=== PATIENT | male | born 1960 | race Caucasian/White ===

== ENCOUNTER 2022-04-14 23:09 | Emergency (ER) | payer MEDICARE, OTHER ==
[2022-04-15] MEDS ORDERED: LIDOCAINE 1% INJ 10MG/ML (5 ML VIAL-PF) SQ ONE (00:28)
--- NOTE | 2022-04-15 00:29 | ED ---
Upper Extremity HPI - General Stated Complaint: Fish hook in LT hand Time Seen by Provider: 04/15/22 00:25 Source: patient - History of Present Illness Initial Comments: Patient presents with a treble hook embedded in the dorsum of his left hand which is been present for about 1-2 hours. This occurred while the patient was fishing. Patient states he is up-to-date on tetanus. No other injuries. No distal paresthesias. No numbness or proximal injuries. No history of immunosuppression or diabetes. No headache, no fever or chills, no changes in vision or hearing, no sore throat or difficulty with speech, no neck pain, no chest pain or shortness of breath, no abdominal pain, no nausea or vomiting, no changes in urination or bowel movements, no numbness or tingling, no extremity pain, no skin rashes or lesions. MD Complaint: Injury to:: left, hand - Related Data Home Medications Medication Instructions Recorded Confirmed Hydrocodone/Acetaminophen [[place] 1 each PO BID PRN 03/08/15 03/08/15 5-325] oxyCODONE ER [OxyCONTIN 20MG E.R] 20 mg PO TID PRN 03/08/15 03/08/15 Previous Rx's Medication Instructions Recorded Cephalexin [Keflex] 500 mg PO Q6HR #28 cap 03/09/15 Allergies Allergy/AdvReac Type Severity Reaction Status Date / Time No Known Allergies Allergy Verified 04/15/22 00:27 Review of Systems ROS Statement: Those systems with pertinent positive or pertinent negative responses have been documented in the HPI. ROS Other: All systems not noted in ROS Statement are negative. Past Medical History Additional Past Medical History / Comment(s): Back pain; Hip pain History of Any Multi-Drug Resistant Organisms: None Reported Past Surgical History: Orthopedic Surgery Past Psychological History: No Psychological Hx Reported Past Alcohol Use History: None Reported Past Drug Use History: None Reported General Exam General appearance: alert, in no apparent distress Head exam: Present: atraumatic, normocephalic, normal inspection Eye exam: Present: normal appearance, EOMI ENT exam: Present: normal exam Neck exam: Present: normal inspection Respiratory exam: Absent: respiratory distress Cardiovascular Exam: Present: regular rate, normal rhythm, normal heart sounds. Absent: systolic murmur, diastolic murmur, rubs, gallop, clicks GI/Abdominal exam: Absent: tenderness Extremities exam: Present: full ROM, normal capillary refill, other. Absent: normal inspection, tenderness Back exam: Present: normal inspection ([place] embedded in the dorsum of left hand) Neurological exam: Present: alert, oriented X3, CN II-XII intact Psychiatric exam: Present: normal affect, normal mood Skin exam: Present: warm, dry, intact, normal color. Absent: rash Course Vital Signs 04/15/22 00:27 Temperature 98.1 F Pulse Rate 58 L Respiratory 18 Rate Blood Pressure 157/86 O2 Sat by Pulse 96 Oximetry Disposition Clinical Impression: Soft tissues foreign body Narrative: [place] injury, left hand Disposition: HOME SELF-CARE Condition: Good Instructions (If sedation given, give patient instructions): Soft Tissue Foreign Body (ED) Additional Instructions: Wash the wound daily with warm soap and water. Soak the wound in warm soap and water 2-3 times a day for 10 minutes. Keep covered with antibiotic ointment and Band-Aid. Follow-up with your regular physician as directed. Return to the ER immediately if any symptoms worsen, new symptoms arise, or any other problems develop. Is patient prescribed a controlled substance at d/c from ED?: No Referrals: None,Stated [REFERRING] - 1-2 days Time of Disposition: 00:48
[2022-04-15 00:30] VITALS: BP 157/86; PULSE 58; RESP 18; TEMP 98.1
== END 2022-04-15 00:59 | disposition home or self-care (01) ==
LOC: EC 23:09
DX: S60.552A Superficial foreign body of left hand, initial encounter (principal); W45.8XXA Other foreign body or object entering through skin, initial encounter
CPT/HCPCS: 99282; J2001